=== PATIENT | female | born 1950 | race Caucasian/White ===

== ENCOUNTER → 2019-03-07 | Outpatient (CLI) | payer MEDICARE, BC | LOC: MAMMO 10:35 | PROVIDERS: ATTEND Family Medicine | DX: Z12.31 Encounter for screening mammogram for malignant neoplasm of breast (principal) | CPT/HCPCS: 77067 ==

== ENCOUNTER → 2023-08-25 | Outpatient (RCR) | payer MEDICARE, BC | LOC: OT 08-11 13:54 | PROVIDERS: ATTEND Plastic Surgery | DX: S52.591S Other fractures of lower end of right radius, sequela (principal) ==

== ENCOUNTER 2023-09-03 09:50 | Outpatient (RCR) | payer MEDICARE, BC | END 2023-09-24 | LOC: OT 09:50 | PROVIDERS: ATTEND Plastic Surgery | DX: S52.591S Other fractures of lower end of right radius, sequela (principal) ==

== ENCOUNTER → 2024-11-29 | Outpatient (REF) | payer MEDICARE | LOC: MAMMO 10:27 | PROVIDERS: ATTEND Family Medicine | DX: Z12.31 Encounter for screening mammogram for malignant neoplasm of breast (principal); M81.0 Age-related osteoporosis without current pathological fracture | CPT/HCPCS: 77067; 77080 ==